=== PATIENT | female | born 1975 | race Hispanic/Latino ===

== ENCOUNTER 2022-01-25 01:28 | Emergency (ER) | payer OTHER ==
[~2022-01-25 01:28] MED LIST: BEPO10DR OU; IRON1CAP30 PO
[2022-01-25 01:47] VITALS: BP 117/81
[2022-01-25 02:21] LABS: HEMATOCRIT 40.7 % (36-48); MEAN CORPUSCULAR HEMOGLOBIN 29.6 pg (27.0-33.0); MEAN CORPUSCULAR HGB CONC 33.9 g/dL (32.0-36.0); MEAN CORPUSCULAR VOLUME 87.3 fL (79-99); PLATELET COUNT (AUTO) 193 K/uL (130-400); RED BLOOD CELL COUNT(AUTO) 4.66 MIL/uL (4.00-5.50); RED CELL DISTRIBUTION WIDTH 13.1 % (11.0-15.5); WHITE BLOOD COUNT (AUTO) 4.2 K/uL (4.8-10.8)
[2022-01-25 02:36] LABS: CARBON DIOXIDE 24 mmol/L (21-32); CHLORIDE 104 mmol/L (101-111); CREATININE 0.7 mg/dL (0.5-1.5); GLOMERULAR FILTR. RATE CALC 96 mL/min (>60); GLUCOSE,RANDOM 113 mg/dL (70-105); POTASSIUM 3.8 mmol/L (3.5-5.1); SODIUM SERUM 140 mmol/L (136-145); UREA NITROGEN, BLOOD 7 mg/dL (7-18)
[2022-01-25 02:39] LABS: APPEARANCE,URINE CLOUDY (CLEAR); BILIRUBIN,URINE SMALL (NEGATIVE); COLOR,URINE YELLOW (YELLOW); GLUCOSE, URINE (UA) NEGATIVE (NEGATIVE); KETONES,URINE >=80 mg/dL (NEGATIVE); LEUKOCYTE ESTERASE ,URINE SMALL (NEGATIVE); NITRATE,URINE NEGATIVE (NEGATIVE); OCCULT BLOOD,URINE NEGATIVE (NEGATIVE); PH,URINE 5.5 (5.0-8.0); PROTEIN,URINE 30 mg/dL (NEGATIVE)
[2022-01-25 02:40] LABS: ALANINE AMINOTRANSFERASE 14 U/L (12-78); ALBUMIN 3.6 g/dL (3.5-5.0); ASPARTATE AMINOTRANSFERASE 19 U/L (10-37); BASOPHILS % (AUTO) 0.2 % (0.0-5.0); LYMPHOCYTES % (AUTO) 26.2 % (21.0-51.0); MONOCYTES % (AUTO) 9.5 % (3.0-13.0); NEUTROPHILS % (AUTO) 63.9 % (40.0-77.0); TOTAL PROTEIN, SERUM 7.3 g/dL (6.0-8.3)
[2022-01-25] MEDS ORDERED: KETOROLAC 15MG/ML VIAL (15MG/ML) IV ONE (03:00)
[2022-01-25] MEDS ORDERED: 0.9%NACL 1000ML 1,000 ML IV ONE (03:00)
[2022-01-25 03:06] LABS: LIPASE < 50 U/L (114-286)
[2022-01-25 03:08] LABS: AMORPHOUS SEDIMENT,UR Many /LPF (None Seen); BACTERIA,URINE Few /HPF (None Seen); MUCUS,URINE Moderate LPF (None Seen); RBC,URINE None Seen /HPF (0-1); SQUAMOUS EPITHELIAL CELL,UR Many /HPF (0-2)
== END 2022-01-25 04:08 | disposition home or self-care (01) ==
LOC: EDH 01:28
DX: E86.0 Dehydration (principal); Z20.822 Contact with and (suspected) exposure to COVID-19; M32.9 Systemic lupus erythematosus, unspecified; Z79.1 Long term (current) use of non-steroidal anti-inflammatories (NSAID); Z86.718 Personal history of other venous thrombosis and embolism; Z90.49 Acquired absence of other specified parts of digestive tract
CPT/HCPCS: 99284; 96374; 87635; 84484; 80053; 83690; 85025; 87088; 87804 ×2; 81001; 81025; 36415; 93005; C9803; J7030; J1885

== ENCOUNTER 2022-09-09 20:41 | Emergency (ER) | payer OTHER ==
[~2022-09-09] VITALS: Ht 162.6 cm; Wt 72.6 kg
[2022-09-09 21:03] VITALS: BP 118/74
[2022-09-09] MEDS ORDERED: MUPI22OI2 TP (21:19)
[2022-09-09] MEDS ORDERED: CEPH500B PO (21:19)
== END 2022-09-09 21:26 | disposition home or self-care (01) ==
LOC: EDH 20:41
DX: R21 Rash and other nonspecific skin eruption (principal); Z90.710 Acquired absence of both cervix and uterus; Z79.899 Other long term (current) drug therapy

== ENCOUNTER 2022-10-23 15:25 | Emergency (ER) | payer OTHER ==
[~2022-10-23] VITALS: Ht 162.6 cm; Wt 72.6 kg
[~2022-10-23 15:25] MED LIST changes: +CEPH500B PO; +MUPI22OI2 TP
[2022-10-23] MEDS ORDERED: CYCLOBENZAPRINE HCL 10 MG TABLET PO ONE (16:00)
[2022-10-23] MEDS ORDERED: KETOROLAC 15MG/ML VIAL (15MG/ML) IV ONE (16:00)
[2022-10-23 16:29] LABS: BASOPHILS % (AUTO) 0.4 % (0.0-5.0); EOSINOPHILS % (AUTO) 0.7 % (0.0-8.0); HEMATOCRIT 40.7 % (36-48); MEAN CORPUSCULAR HEMOGLOBIN 29.6 pg (27.0-33.0); MEAN CORPUSCULAR HGB CONC 33.4 g/dL (32.0-36.0); MEAN CORPUSCULAR VOLUME 88.5 fL (79-99); MONOCYTES % (AUTO) 6.5 % (3.0-13.0); NEUTROPHILS % (AUTO) 57.2 % (40.0-77.0); PLATELET COUNT (AUTO) 258 K/uL (130-400); RED CELL DISTRIBUTION WIDTH 13.6 % (11.0-15.5); WHITE BLOOD COUNT (AUTO) 8.3 K/uL (4.8-10.8)
[2022-10-23 16:30] LABS: APPEARANCE,URINE CLEAR (CLEAR); BILIRUBIN,URINE NEGATIVE (NEGATIVE); COLOR,URINE COLORLESS (YELLOW); GLUCOSE, URINE (UA) NEGATIVE (NEGATIVE); KETONES,URINE 10 mg/dL (NEGATIVE); LEUKOCYTE ESTERASE ,URINE 25 Leu/uL (NEGATIVE); NITRATE,URINE NEGATIVE (NEGATIVE); OCCULT BLOOD,URINE NEGATIVE (NEGATIVE); PH,URINE 5.5 (5.0-8.0); PROTEIN,URINE NEGATIVE (NEGATIVE); UROBILINOGEN,URINE 0.2 mg/dL (0.2-1.0)
[2022-10-23 16:32] LABS: BACTERIA,URINE RARE /HPF (None Seen); MUCUS,URINE RARE LPF (None Seen); RBC,URINE 0-1 /HPF (0-1); SQUAMOUS EPITHELIAL CELL,UR FEW /HPF (0-2)
[2022-10-23 16:39] LABS: CREATININE 0.5 mg/dL (0.5-1.5); POTASSIUM 3.7 mmol/L (3.5-5.1)
[2022-10-23 16:49] LABS: ALBUMIN 3.9 g/dL (3.5-5.0); TOTAL PROTEIN, SERUM 7.5 g/dL (6.0-8.3)
[2022-10-23] MEDS ORDERED: KETO10TA2 PO (17:43)
[2022-10-23] MEDS ORDERED: CYCL-309 PO (17:43)
[2022-10-23 17:55] VITALS: BP 119/73
== END 2022-10-23 18:04 | disposition home or self-care (01) ==
LOC: EDH 15:25
DX: M62.830 Muscle spasm of back (principal); Z79.899 Other long term (current) drug therapy; Z98.890 Other specified postprocedural states; V48.5XXA Car driver injured in noncollision transport accident in traffic accident, initial encounter; Y93.I9 Activity, other involving external motion; Y92.410 Unspecified street and highway as the place of occurrence of the external cause; Y99.8 Other external cause status
CPT/HCPCS: 99285; 96374; 71045; 84484; 80053; 85025; 83605; 81001; 36415; 93005; J1885

== ENCOUNTER 2023-03-04 19:38 | Emergency (ER) | payer OTHER ==
[~2023-03-04] VITALS: Ht 162.6 cm; Wt 72.6 kg
[~2023-03-04 19:38] MED LIST changes: +CYCL-309 PO; +KETO10TA2 PO; +PRED20TA3 PO
[2023-03-04] MEDS ORDERED: 0.9%NACL 1000ML 1,000 ML IV ONE (20:30)
[2023-03-04] MEDS ORDERED: ONDANSETRON 4MG INJ IVP ONE (20:30)
[2023-03-04] MEDS ORDERED: KETOROLAC 30MG VIAL (30MG/ML) IVP ONE (20:30)
[2023-03-04 20:44] LABS: BASOPHILS # (AUTO) 0.03 K/uL (0.00-0.20); BASOPHILS % (AUTO) 0.4 % (0.0-5.0); EOSINOPHILS # (AUTO) 0.05 K/uL (0.00-0.70); EOSINOPHILS % (AUTO) 0.7 % (0.0-8.0); HEMATOCRIT 41.2 % (36-48); IMMATURE GRANULOCYTE ABSOLUTE 0.01 K/uL (0-1); LYMPHOCYTES # (AUTO) 3.2 K/uL (1.0-4.8); LYMPHOCYTES % (AUTO) 43.3 % (21.0-51.0); MEAN CORPUSCULAR HEMOGLOBIN 29.7 pg (27.0-33.0); MEAN CORPUSCULAR HGB CONC 32.5 g/dL (32.0-36.0); MEAN CORPUSCULAR VOLUME 91.4 fL (79-99); MONOCYTES # (AUTO) 0.6 K/uL (0.1-1.0); MONOCYTES % (AUTO) 7.4 % (3.0-13.0); NEUTROPHILS # (AUTO) 3.6 K/uL (1.8-7.7); NEUTROPHILS % (AUTO) 48.1 % (40.0-77.0); PLATELET COUNT (AUTO) 240 K/uL (130-400); RED BLOOD CELL COUNT(AUTO) 4.51 MIL/uL (4.00-5.50); RED CELL DISTRIBUTION WIDTH 13.2 % (11.0-15.5); WHITE BLOOD COUNT (AUTO) 7.4 K/uL (4.8-10.8)
[2023-03-04 20:46] LABS: APPEARANCE,URINE CLOUDY (CLEAR); BILIRUBIN,URINE NEGATIVE (NEGATIVE); COLOR,URINE LIGHT-YELLOW (YELLOW); GLUCOSE, URINE (UA) NEGATIVE (NEGATIVE); KETONES,URINE NEGATIVE (NEGATIVE); LEUKOCYTE ESTERASE ,URINE NEGATIVE Leu/uL (NEGATIVE); NITRATE,URINE NEGATIVE (NEGATIVE); OCCULT BLOOD,URINE NEGATIVE (NEGATIVE); PROTEIN,URINE NEGATIVE (NEGATIVE); UROBILINOGEN,URINE 0.2 mg/dL (0.2-1.0)
[2023-03-04 20:50] LABS: ADD UA MICROSCOPIC YES
[2023-03-04 20:55] LABS: HCG,QUALITATIVE URINE NEGATIVE (NEGATIVE)
[2023-03-04 20:57] LABS: BACTERIA,URINE FEW /HPF (None Seen); MUCUS,URINE RARE LPF (None Seen); SQUAMOUS EPITHELIAL CELL,UR FEW /HPF (0-2); YEAST,URINE BUDDING FEW /HPF (None Seen)
[2023-03-04 21:02] LABS: CREATININE 0.6 mg/dL (0.5-1.5); POTASSIUM 3.3 mmol/L (3.5-5.1)
[2023-03-04 21:06] LABS: ALBUMIN 4.1 g/dL (3.5-5.0); BILIRUBIN,TOTAL 0.6 mg/dL (0.2-1.0); TOTAL PROTEIN, SERUM 7.5 g/dL (6.0-8.3)
[2023-03-04] MEDS ORDERED: POTASSIUM BICARB/CIT AC 25 MEQ TABLET.EFF PO ONE (21:30)
[2023-03-04] MEDS ORDERED: CYCL10TA16 PO (21:40)
[2023-03-04] MEDS ORDERED: IBUP-2070 PO (21:40)
[2023-03-04 22:00] VITALS: BP 115/73; PULSE 66; RESP 16; O2SAT 98
== END 2023-03-04 22:33 | disposition home or self-care (01) ==
LOC: EDH 19:38
DX: M62.830 Muscle spasm of back (principal); L93.0 Discoid lupus erythematosus; Z79.52 Long term (current) use of systemic steroids; Z90.49 Acquired absence of other specified parts of digestive tract; Z90.710 Acquired absence of both cervix and uterus
CPT/HCPCS: 99285; 74176; 96374; 96361; 96375; 80053; 83690; 85025; 87077; 87088; 87186; 81001; 81025; 36415; J7030; J2405; J1885

== ENCOUNTER 2023-11-19 04:27 | Inpatient (IN) | payer BC, OTHER ==
[~2023-11-19] VITALS: Ht 162.6 cm; Wt 75.2 kg
[~2023-11-19 04:27] MED LIST changes: +CYCL10TA16 PO; +IBUP-2070 PO
[2023-11-19 04:46] LABS: APPEARANCE,URINE CLOUDY (CLEAR); BILIRUBIN,URINE NEGATIVE (NEGATIVE); COLOR,URINE LIGHT-YELLOW (YELLOW); GLUCOSE, URINE (UA) NEGATIVE (NEGATIVE); KETONES,URINE NEGATIVE (NEGATIVE); LEUKOCYTE ESTERASE ,URINE 500 Leu/uL (NEGATIVE); NITRATE,URINE NEGATIVE (NEGATIVE); OCCULT BLOOD,URINE MODERATE (NEGATIVE); PH,URINE 6.5 (5.0-8.0); PROTEIN,URINE 10 mg/dL (NEGATIVE); UROBILINOGEN,URINE 0.2 mg/dL (0.2-1.0)
[2023-11-19 04:48] LABS: HCG,QUALITATIVE URINE NEGATIVE (NEGATIVE)
[2023-11-19 04:50] LABS: BASOPHILS # (AUTO) 0.03 K/uL (0.00-0.20); BASOPHILS % (AUTO) 0.4 % (0.0-5.0); EOSINOPHILS # (AUTO) 0.07 K/uL (0.00-0.70); EOSINOPHILS % (AUTO) 0.9 % (0.0-8.0); HEMATOCRIT 43.8 % (36-48); IMMATURE GRANULOCYTE ABSOLUTE 0.03 K/uL (0-1); LYMPHOCYTES # (AUTO) 2.6 K/uL (1.0-4.8); LYMPHOCYTES % (AUTO) 34.2 % (21.0-51.0); MEAN CORPUSCULAR HGB CONC 33.1 g/dL (32.0-36.0); MEAN CORPUSCULAR VOLUME 90.5 fL (79-99); MONOCYTES # (AUTO) 0.5 K/uL (0.1-1.0); MONOCYTES % (AUTO) 6.9 % (3.0-13.0); NEUTROPHILS # (AUTO) 4.4 K/uL (1.8-7.7); NEUTROPHILS % (AUTO) 57.2 % (40.0-77.0); PLATELET COUNT (AUTO) 226 K/uL (130-400); RED BLOOD CELL COUNT(AUTO) 4.84 MIL/uL (4.00-5.50); RED CELL DISTRIBUTION WIDTH 12.8 % (11.0-15.5); WHITE BLOOD COUNT (AUTO) 7.6 K/uL (4.8-10.8)
[2023-11-19] MEDS: MORPHINE 4 MG SYG IVP ONE (04:51)
[2023-11-19] MEDS: ONDANSETRON 4MG INJ IVP ONE (04:51)
[2023-11-19] MEDS: LACTATED RINGERS 1000ML 1,000 ML IV ONE (04:51)
[2023-11-19 05:00] LABS: CREATININE 0.6 mg/dL (0.5-1.0); POTASSIUM 3.5 mmol/L (3.5-5.1)
[2023-11-19 05:03] LABS: ADD UA MICROSCOPIC YES
[2023-11-19 05:05] LABS: ALBUMIN 3.9 g/dL (3.5-5.0); BILIRUBIN,TOTAL 0.6 mg/dL (0.2-1.0); TOTAL PROTEIN, SERUM 7.9 g/dL (6.0-8.3)
[2023-11-19 05:07] LABS: BACTERIA,URINE FEW /HPF (None Seen); MUCUS,URINE RARE LPF (None Seen); SQUAMOUS EPITHELIAL CELL,UR MOD /HPF (0-2); WBC,URINE 51-100 /HPF (0-1)
[2023-11-19] MEDS: LIDOCAINE HCL 2% VISCOUS 15 ML UDCUP PO ONE (05:20)
[2023-11-19] MEDS: MAG/ALUM/SIMETH 30 ML UDCUP PO ONE (05:20)
[2023-11-19] MEDS: CEFTRIAXONE 1G VIAL IVPB SCH (05:20)
[2023-11-19] MEDS ORDERED: IOHEXOL-350 75 ML VIAL IV ONE (05:22)
[2023-11-19] MEDS: FAMOTIDINE 20MG VIAL IV ONE (06:01)
[2023-11-19] MEDS: PROMETHAZINE HCL 25 MG/ML 1ML AMPULE IM ONE (06:01)
[2023-11-19] MEDS ORDERED: APIX5TAB PO (07:13)
[2023-11-19] MEDS ORDERED: MAG/ALUM/SIMETH 30 ML UDCUP PO PRN (08:30)
[2023-11-19] MEDS ORDERED: HYDROCODONE/ACETAMINOPHEN 5/325 MG TAB PO PRN (08:30)
[2023-11-19] MEDS ORDERED: ACETAMINOPHEN 325 MG TAB PO PRN (08:30)
[2023-11-19] MEDS ORDERED: GUAIFENESIN-DM 200/20 MG 10 ML PO PRN (08:30)
[2023-11-19] MEDS ORDERED: ONDANSETRON 4MG INJ IV PRN (08:30)
[2023-11-19] MEDS ORDERED: MORPHINE 4 MG SYG IV PRN (08:30)
[2023-11-19 08:38] LABS: INR <= 0.93 (0.85-1.15); PROTHROMBIN TIME 10.4 SEC (9.6-11.6)
[2023-11-19 08:39] LABS: PARTIAL THROMBOPLASTIN TIME 32.1 SEC (26.3-35.5)
[2023-11-19] MEDS: LACTATED RINGERS 1000ML 1,000 ML IV SCH (08:52)
[2023-11-19] MEDS: APIXABAN 5 MG TABLET PO SCH (08:57)
[2023-11-19] MEDS: FAMOTIDINE 20MG TAB PO SCH (09:47)
[2023-11-19 10:25] VITALS: BP 126/76; PULSE 74; RESP 16
[2023-11-19 12:00] VITALS: BP 105/59; PULSE 73; RESP 16
[2023-11-19] MEDS: CEFTRIAXONE 2GM VIAL IVPB SCH (12:26)
[2023-11-19 16:00] VITALS: BP 101/56; PULSE 69; RESP 16
[2023-11-19] MEDS: LACTULOSE 20 GM/30 ML UDCUP PO PRN (17:38)
[2023-11-19] MEDS: ACETAMINOPHEN 325 MG TAB PO PRN (17:48)
[2023-11-19 20:09] VITALS: BP 122/74; PULSE 69; RESP 18
[2023-11-19 23:33] VITALS: BP 120/59; PULSE 66; RESP 18
[2023-11-20 04:22] LABS: BASOPHILS # (AUTO) 0.02 K/uL (0.00-0.20); BASOPHILS % (AUTO) 0.4 % (0.0-5.0); EOSINOPHILS # (AUTO) 0.04 K/uL (0.00-0.70); EOSINOPHILS % (AUTO) 0.7 % (0.0-8.0); HEMATOCRIT 37.4 % (36-48); IMMATURE GRANULOCYTE ABSOLUTE 0.01 K/uL (0-1); LYMPHOCYTES # (AUTO) 2.4 K/uL (1.0-4.8); LYMPHOCYTES % (AUTO) 44.7 % (21.0-51.0); MEAN CORPUSCULAR HEMOGLOBIN 30.2 pg (27.0-33.0); MEAN CORPUSCULAR HGB CONC 33.4 g/dL (32.0-36.0); MEAN CORPUSCULAR VOLUME 90.3 fL (79-99); MONOCYTES # (AUTO) 0.5 K/uL (0.1-1.0); MONOCYTES % (AUTO) 8.5 % (3.0-13.0); NEUTROPHILS # (AUTO) 2.5 K/uL (1.8-7.7); NEUTROPHILS % (AUTO) 45.5 % (40.0-77.0); PLATELET COUNT (AUTO) 210 K/uL (130-400); RED BLOOD CELL COUNT(AUTO) 4.14 MIL/uL (4.00-5.50); RED CELL DISTRIBUTION WIDTH 12.9 % (11.0-15.5); WHITE BLOOD COUNT (AUTO) 5.4 K/uL (4.8-10.8)
[2023-11-20 04:28] VITALS: BP 103/60; PULSE 56; RESP 18
[2023-11-20 04:54] LABS: CREATININE 0.6 mg/dL (0.5-1.0); POTASSIUM 3.8 mmol/L (3.5-5.1)
[2023-11-20 08:00] VITALS: BP 121/68; PULSE 69; RESP 16
[2023-11-20 12:00] VITALS: BP 108/73; PULSE 64; RESP 16
[2023-11-20 16:00] VITALS: BP 106/66; PULSE 53; RESP 16
[2023-11-20 20:44] VITALS: BP 128/66; PULSE 61; RESP 18
[2023-11-20 23:56] VITALS: BP 110/73; PULSE 66; RESP 18
[2023-11-21 04:30] VITALS: BP 105/61; PULSE 64; RESP 18
[2023-11-21 07:53] VITALS: BP 103/70; PULSE 64; RESP 17
[2023-11-21 08:00] VITALS: O2SAT 98
[2023-11-21 12:00] VITALS: BP 105/68; PULSE 65; RESP 18
[2023-11-21 16:00] VITALS: BP 113/66; PULSE 61; RESP 16
[2023-11-21 20:00] VITALS: BP 119/77; PULSE 61; RESP 17
[2023-11-22] VITALS: BP 114/76; PULSE 71; RESP 17
[2023-11-22 04:00] VITALS: BP 110/67; PULSE 60; RESP 17
[2023-11-22 04:09] LABS: BASOPHILS # (AUTO) 0.03 K/uL (0.00-0.20); BASOPHILS % (AUTO) 0.4 % (0.0-5.0); EOSINOPHILS # (AUTO) 0.07 K/uL (0.00-0.70); HEMATOCRIT 35.1 % (36-48); IMMATURE GRANULOCYTE ABSOLUTE 0.03 K/uL (0-1); LYMPHOCYTES # (AUTO) 2.9 K/uL (1.0-4.8); LYMPHOCYTES % (AUTO) 40.1 % (21.0-51.0); MEAN CORPUSCULAR HEMOGLOBIN 29.7 pg (27.0-33.0); MEAN CORPUSCULAR HGB CONC 33.6 g/dL (32.0-36.0); MEAN CORPUSCULAR VOLUME 88.4 fL (79-99); MONOCYTES # (AUTO) 0.4 K/uL (0.1-1.0); MONOCYTES % (AUTO) 5.9 % (3.0-13.0); NEUTROPHILS # (AUTO) 3.8 K/uL (1.8-7.7); NEUTROPHILS % (AUTO) 52.2 % (40.0-77.0); PLATELET COUNT (AUTO) 218 K/uL (130-400); RED BLOOD CELL COUNT(AUTO) 3.97 MIL/uL (4.00-5.50); RED CELL DISTRIBUTION WIDTH 12.6 % (11.0-15.5); WHITE BLOOD COUNT (AUTO) 7.3 K/uL (4.8-10.8)
[2023-11-22 04:24] LABS: ALBUMIN 3.1 g/dL (3.5-5.0); BILIRUBIN,TOTAL 0.4 mg/dL (0.2-1.0); CREATININE 0.6 mg/dL (0.5-1.0); POTASSIUM 3.6 mmol/L (3.5-5.1); TOTAL PROTEIN, SERUM 6.4 g/dL (6.0-8.3)
[2023-11-22 07:30] VITALS: BP 122/62; PULSE 57; RESP 20
[2023-11-22] MEDS ORDERED: FAMO20TA8 PO (08:37)
[2023-11-22] MEDS ORDERED: POTASSIUM CHLORIDE 10% ELIXIR 20 MEQ/15 ML UDCUP PO PRN (09:00)
[2023-11-22] MEDS ORDERED: MAGNESIUM 2GM PREMIX 50ML 50 ML IV PRN (09:00)
[2023-11-22] MEDS ORDERED: KCL 20 MEQ ERTAB PO PRN (09:00)
[2023-11-22] MEDS ORDERED: POTASSIUM CHLORIDE 20MEQ/100ML 100 ML IV PRN (09:00)
[2023-11-22 11:44] VITALS: BP 105/67; PULSE 64; RESP 20
== END 2023-11-22 15:00 | disposition home or self-care (01) | DRG 872 ==
LOC: EDH 04:27 → EDHIP 08:01 → 4DH 09:41
PROVIDERS: ADMIT Hospitalist; ATTEND Hospitalist
DX: A41.9 Sepsis, unspecified organism (principal); N10 Acute pyelonephritis; E86.0 Dehydration; I25.10 Atherosclerotic heart disease of native coronary artery without angina pectoris; N20.0 Calculus of kidney; B96.29 Other Escherichia coli [E. coli] as the cause of diseases classified elsewhere; Z86.718 Personal history of other venous thrombosis and embolism; Z87.442 Personal history of urinary calculi; Z90.710 Acquired absence of both cervix and uterus; Z95.5 Presence of coronary angioplasty implant and graft; M32.9 Systemic lupus erythematosus, unspecified; Z90.49 Acquired absence of other specified parts of digestive tract
CPT/HCPCS: 36415; 74177; 80048; 80053; 81001; 81025; 83690; 83735; 85025; 85610; 85730; 87077; 87088; 87186; 96365; 96375; G0378; J0696; J2270; J2405; J2550; J3490; Q9967

== ENCOUNTER 2024-05-13 20:22 | Emergency (ER) | payer BC ==
[~2024-05-13] VITALS: Ht 162.6 cm; Wt 78.0 kg
[~2024-05-13 20:22] MED LIST changes: +APIX5TAB PO; -BEPO10DR OU; -CEPH500B PO; -CYCL-309 PO; -CYCL10TA16 PO; +FAMO20TA8 PO; -IBUP-2070 PO; -IRON1CAP30 PO; -KETO10TA2 PO; -MUPI22OI2 TP; -PRED20TA3 PO
[2024-05-13 21:00] LABS: BASOPHILS # (AUTO) 0.03 K/uL (0.00-0.20); BASOPHILS % (AUTO) 0.4 % (0.0-5.0); EOSINOPHILS # (AUTO) 0.06 K/uL (0.00-0.70); EOSINOPHILS % (AUTO) 0.8 % (0.0-8.0); HEMATOCRIT 40.8 % (36-48); IMMATURE GRANULOCYTE ABSOLUTE 0.02 K/uL (0-1); LYMPHOCYTES # (AUTO) 3.3 K/uL (1.0-4.8); LYMPHOCYTES % (AUTO) 44.7 % (21.0-51.0); MEAN CORPUSCULAR HEMOGLOBIN 29.2 pg (27.0-33.0); MEAN CORPUSCULAR HGB CONC 32.6 g/dL (32.0-36.0); MEAN CORPUSCULAR VOLUME 89.7 fL (79-99); MONOCYTES # (AUTO) 0.6 K/uL (0.1-1.0); MONOCYTES % (AUTO) 7.4 % (3.0-13.0); NEUTROPHILS # (AUTO) 3.5 K/uL (1.8-7.7); NEUTROPHILS % (AUTO) 46.4 % (40.0-77.0); PLATELET COUNT (AUTO) 224 K/uL (130-400); RED BLOOD CELL COUNT(AUTO) 4.55 MIL/uL (4.00-5.50); RED CELL DISTRIBUTION WIDTH 13.2 % (11.0-15.5); WHITE BLOOD COUNT (AUTO) 7.5 K/uL (4.8-10.8)
[2024-05-13 21:04] LABS: APPEARANCE,URINE CLOUDY (CLEAR); BILIRUBIN,URINE NEGATIVE (NEGATIVE); COLOR,URINE YELLOW (YELLOW); GLUCOSE, URINE (UA) NEGATIVE (NEGATIVE); KETONES,URINE 5 mg/dL (NEGATIVE); LEUKOCYTE ESTERASE ,URINE 25 Leu/uL (NEGATIVE); NITRATE,URINE NEGATIVE (NEGATIVE); OCCULT BLOOD,URINE NEGATIVE (NEGATIVE); PH,URINE 5.5 (5.0-8.0); PROTEIN,URINE 20 mg/dL (NEGATIVE); UROBILINOGEN,URINE 0.2 mg/dL (0.2-1.0)
[2024-05-13 21:07] LABS: CREATININE 0.8 mg/dL (0.5-1.0); POTASSIUM 3.6 mmol/L (3.5-5.1)
[2024-05-13 21:07] LABS: ADD UA MICROSCOPIC YES
[2024-05-13 21:08] LABS: MUCUS,URINE RARE LPF (None Seen); SQUAMOUS EPITHELIAL CELL,UR MANY /HPF (0-2)
[2024-05-13] MEDS: ketOROlac 30MG VIAL (30MG/ML) IVP ONE (21:30)
[2024-05-13] MEDS: ondanSETRON 4MG INJ IVP ONE (21:30)
--- NOTE | 2024-05-13 21:53 | HMCIMG ---
CT ABDOMEN/PELVIS W/O CONTRAST INDICATION: Flank pain TECHNIQUE: CT ABDOMEN/PELVIS W/O CONTRAST. Oral contrast was - given. Coronal and sagittal reformats were performed. CT was performed with one or more of the following dose reduction techniques: Automated exposure control, adjustment of the mA and/or kV according to the patient's size, or use of the iterative reconstruction technique. Comparison: None. FINDINGS: The noncontrast nature this study limits evaluation of abdominal viscera. No pulmonary consolidation or pleural effusion is seen. There is hepatic steatosis. Cholecystectomy changes are noted. The spleen, pancreas, and adrenal glands are within normal limits. No hydronephrosis. The urinary bladder is partially collapsed. Hysterectomy changes are noted. A stent is seen in the left common iliac vein. There is no bowel obstruction. Normal appendix. Small fat-containing umbilical hernia is seen. Degenerative changes of the spine. Visualized aorta is normal in caliber. IMPRESSION: No hydronephrosis or renal calculus is seen.
[2024-05-13] MEDS ORDERED: NITR100C4 PO (22:52)
[2024-05-13] MEDS ORDERED: ONDA-243 PO (22:52)
--- NOTE | 2024-05-13 22:53 | ERN ---
ED Note History of Present Illness Stated Complaint: UTI, KIDNY PAIN Chief Complaint: Abdominal Pain Time Seen by MD: 20:44 Time Seen by Midlevel: 20:44 Dictation: The patient is a 48-year-old female with a history of lupus, hysterectomy, cholecystectomy who presents to the emergency department with left lower back pain that radiates to the suprapubic area onset two days ago. Patient also reports frequent urination. Denies any fevers or hematuria, chills reports occasional nausea. Denies diarrhea or constipation. Allergies: Coded Allergies: No Known Drug Allergies (Unverified Allergy, Unknown, 11/16/17) Home Meds Active Scripts Ondansetron (Ondansetron Odt) 4 Mg Tab.rapdis, 1 TAB PO Q6HPRN PRN for mouna sea/vomiting for 4 Days, #16 TAB 0 Refills Prov:LOI ARBOLEDA [facility] 05/13/24 Nitrofurantoin Monohyd/M-Cryst (Macrobid 100 mg Capsule) 100 Mg Capsule, 1 CAP PO BID for 5 Days, #10 CAP 0 Refills Prov:LOI ARBOLEDA [facility] 05/13/24 Famotidine (Famotidine) 20 Mg Tablet, 20 MG PO DAILY for 30 Days, #30 TAB Prov:ROSLYN FRANCOIS [employer]IST 11/22/23 Reported Medications Apixaban (Eliquis) 5 Mg Tablet, 5 MG PO BID, TAB 11/19/23 Past Medical History Past Medical History: Other Additional Past Medical Hx: LUPUS; HX OF HERPES Surgical History: Hysterectomy Surgical History Other: LASIK, CARDIAC STENT Social History: Negative, Lives with family History: Not Applicable RN Note Reviewed/Agreed w/PFSH: Yes Review of System Dictation Constitutional: Negative for fever,chills, and weight loss Eyes: Negative for injury, pain,redness, and discharge ENT: Negative for injury,pain or swelling Cardiovascular: Negative for chest pain, palpitations, and edema Respiratory: Negative for shortness of breath, cough, and wheezing, Abdomen/GI: Negative for vomiting, diarrhea, and constipation. Positive for abdominal pain, nausea Back: Negative for injury and pain : Negative for injury, bleeding and discharge positive for polyuria MS/Extremity: Negative for injury and deformity positive for back pain Skin: Negative for rash, and discoloration Neuro: Negative for headache, weakness, numbness, tingling, and seizure Psych: Negative for suicide ideation, homicidal ideation, and hallucinations Initial Vital Sign VS Vital Signs Date Time Temp Pulse Resp B/P (MAP) Pulse Ox O2 Delivery O2 Flow Rate FiO2 05/13/24 20:31 98.4 68 20 103/58 99 Room Air Physical Exam Dictation Vital Signs reviewed General Appearance: Alert, oriented x 3, no acute distress, well developed, nourished. Head and Face: non-traumatic. Eyes: PERRL, pink conjunctivas, eyelid no trauma, anterior chamber with arcus senilis. Ears: Pinnas intact and no signs of trauma or erythema ear canals clear and no discharge TM no erythema Nose: No discharge, no bleeding. Oropharynx: Mouth normal, tongue pink. pharynx clear,no erythema, tonsils no exudates, no abscesses noted, mucous membrane moist Neck: Supple, non-tender, no thyromegaly, no masses, no JVD, no bruits Breast:Deferred Chest:No tenderness, no crepitus, no paradoxical movement, no retractions Lungs:Clear, well-ventilated, symmetric, no rales, no wheezing, no rhonchi, no stridor, good breath sounds bilaterally Heart: Regular rate, regular rhythm, no murmur, no gallops Vascular: no peripheral edema, Abdomen: Soft, positive bowel sounds, nondistended, no guarding, nontender, no rebound, no masses no hepatomegaly, no splenomegaly, no Pettit's sign, no hernias. Rectal: Deferred Genital: Deferred Neurological: Normal speech, motor function intact, sensory function intact Musculoskeletal: Neck nontender, full range of motion, back nontender, full range of motion, Extremities: nontender, full range of motion Skin: Color pink, dry, no turgor, no rash, no lacerations, no abrasions, no contusions. Lymphatic: Deferred Results (Laboratory/Radiology) Laboratory/Radiology Laboratory Tests Test 05/13/24 20:46 05/13/24 20:48 White Blood Count 7.5 K/uL (4.8-10.8) Red Blood Count 4.55 MIL/uL (4.00-5.50) Hemoglobin 13.3 g/dL (12.0-16.0) Hematocrit 40.8 % (36-48) Mean Corpuscular Volume 89.7 fL (79-99) Mean Corpuscular Hemoglobin 29.2 pg (27.0-33.0) Mean Corpuscular Hemoglobin Concent 32.6 g/dL (32.0-36.0) Red Cell Distribution Width 13.2 % (11.0-15.5) Platelet Count 224 K/uL (130-400) Mean Platelet Volume 9.8 fL (7.5-10.5) Immature Granulocyte % (Auto) 0.3 % (0-1) Neutrophils (%) (Auto) 46.4 % (40.0-77.0) Lymphocytes (%) (Auto) 44.7 % (21.0-51.0) Monocytes (%) (Auto) 7.4 % (3.0-13.0) Eosinophils (%) (Auto) 0.8 % (0.0-8.0) Basophils (%) (Auto) 0.4 % (0.0-5.0) Neutrophils # (Auto) 3.5 K/uL (1.8-7.7) Lymphocytes # (Auto) 3.3 K/uL (1.0-4.8) Monocytes # (Auto) 0.6 K/uL (0.1-1.0) Eosinophils # (Auto) 0.06 K/uL (0.00-0.70) Basophils # (Auto) 0.03 K/uL (0.00-0.20) Absolute Immature Granulocyte (auto 0.02 K/uL (0-1) Nucleated Red Blood Cells 0.0 % (0.0-0.19) Sodium Level 140 mmol/L (136-145) Potassium Level 3.6 mmol/L (3.5-5.1) Chloride Level 101 mmol/L (101-111) Carbon Dioxide Level 33 mmol/L (21-32) H Blood Urea Nitrogen 17 mg/dL (7-18) Creatinine 0.8 mg/dL (0.5-1.0) Glomerular Filtration Rate Calc 91 mL/min (>90) Random Glucose 85 mg/dL (70-105) Total Calcium 9.4 mg/dL (8.5-10.1) Lipase 26 U/L (16-77) Urine Color YELLOW (YELLOW) Urine Appearance CLOUDY (CLEAR) H Urine pH 5.5 (5.0-8.0) Urine Specific [place] 1.032 (1.001-1.031) Urine Protein 20 mg/dL (NEGATIVE) H Urine Glucose (UA) NEGATIVE mg/dL (NEGATIVE) Urine Ketones 5 mg/dL (NEGATIVE) H Urine Occult Blood NEGATIVE (NEGATIVE) Urine Nitrate NEGATIVE (NEGATIVE) Urine Bilirubin NEGATIVE mg/dL (NEGATIVE) Urine Urobilinogen 0.2 mg/dL (0.2-1.0) Urine Leukocyte Esterase 25 Jazmin/uL (NEGATIVE) H Urine RBC 2-5 /HPF (0-1) H Urine WBC 2-5 /HPF (0-1) H Urine Squamous Epithelial Cells MANY /HPF (0-2) Urine Bacteria None /HPF (None Seen) REASON: R/O KIDNEY STONES ORDERING PHYSICIAN: LOI ARBOLEDA PROCEDURE: ABD PEL WO - CT ABDOMEN/PELVIS W/O CONTRAST CT ABDOMEN/PELVIS W/O CONTRAST INDICATION: Flank pain TECHNIQUE: CT ABDOMEN/PELVIS W/O CONTRAST. Oral contrast was - given. Coronal and sagittal reformats were performed. CT was performed with one or more of the following dose reduction techniques: Automated exposure control, adjustment of the mA and/or kV according to the patient's size, or use of the iterative reconstruction technique. Comparison: None. FINDINGS: The noncontrast nature this study limits evaluation of abdominal viscera. No pulmonary consolidation or pleural effusion is seen. There is hepatic steatosis. Cholecystectomy changes are noted. The spleen, pancreas, and adrenal glands are within normal limits. No hydronephrosis. The urinary bladder is partially collapsed. Hysterectomy changes are noted. A stent is seen in the left common iliac vein. There is no bowel obstruction. Normal appendix. Small fat-containing umbilical hernia is seen. Degenerative changes of the spine. Visualized aorta is normal in caliber. IMPRESSION: No hydronephrosis or renal calculus is seen. Labs Reviewed?: Yes ED Course ED Course Orders Procedure Category Date Status Time Vital Signs Per CPOE 05/13/24 Transmitted Routine 20:36 Saline Lock Iv CPOE 05/13/24 Transmitted 20:36 Cbc With Differential LAB 05/13/24 Complete 20:36 Lipase LAB 05/13/24 Complete 20:36 Urinalysis Profile LAB 05/13/24 Complete 20:36 Basic Metabolic Panel LAB 05/13/24 Complete 20:36 Ct Abdomen/Pelvis W/O CT 11/18/24 Resulted Contrast 21:14 0.9%Nacl 1000ml (Ns PHA 05/13/24 Complete 1000ml) 21:30 Ketorolac PHA 05/13/24 Complete Tromethamine 30mg/Ml 21:30 Ondansetron 4mg Inj PHA 05/13/24 Complete (Zofran 4mg Inj) 21:30 Ceftriaxone 1g Vial PHA 05/13/24 Complete (Rocephine 1g Inj) 21:30 Current Medications Medications (Trade) Dose Ordered Sig/Alejo Route PRN Reason Start Time Stop Time Status Last Admin Dose Admin Ceftriaxone Sodium (ROCEphine 1G INJ) 1 gm ONCE ONCE IVPB 05/13/24 21:30 05/13/24 21:31 DC Ketorolac Tromethamine (toRADol) 30 mg ONCE ONCE IVP 05/13/24 21:30 05/13/24 21:31 DC Ondansetron HCl (zoFRAN 4MG INJ) 4 mg ONCE ONCE IVP 05/13/24 21:30 05/13/24 21:31 DC Sodium Chloride 1,000 ml @ 0 mls/hr ONCE ONCE IV 05/13/24 21:30 05/13/24 21:31 DC Vital Signs Date Time Temp Pulse Resp B/P (MAP) Pulse Ox O2 Delivery O2 Flow Rate FiO2 05/13/24 20:31 98.4 68 20 103/58 99 Room Air Medical Decision Making MDM The patient is a 48-year-old female with a history of lupus, hysterectomy, cholecystectomy who presents to the emergency department with left lower back pain that radiates to the suprapubic area onset two days ago. Patient also reports frequent urination. Denies any fevers or hematuria, chills reports occasional nausea. Denies diarrhea or constipation. CBC showed no leukocytosis, no anemia, chemistry showed no electrolyte imbalance, normal renal function, negative lipase, urinalysis positive for UTI. Patient will be treated as outpatient. CT abdomen showed no kidney stones, small umbilical hernia. Patient continues in no distress, nontender abdomen, no CVA tenderness labs and imaging discussed with the patient who agrees to be discharged and follow up with PCP. Differential diagnosis: Kidney stone, UTI, pyelonephritis, electrolyte imbal ance, back strain Need for hospitalization: Patient does not meet criteria for hospitalization. There are no social concerns with this patient. DX & DISP Disposition: Discharge Departure Impression: Primary Impression: UTI (urinary tract infection) Additional Impressions: Abdominal pain, Umbilical hernia Condition: Stable Scripts Ondansetron (Ondansetron Odt) 4 Mg Tab.rapdis 1 TAB PO Q6HPRN PRN for nausea/vomiting for 4 Days, #16 TAB 0 Refills Prov: LOI ARBOLEDA [facility] [employer] 05/13/24 Nitrofurantoin Monohyd/M-Cryst (Macrobid 100 mg Capsule) 100 Mg Capsule 1 CAP PO BID for 5 Days, #10 CAP 0 Refills Prov: LOI ARBOLEDA [facility] 05/13/24 Additional Instructions: Please take medications as prescribed. Please follow up with primary doctor in 1-2 days. If symptoms worsen please return to ER. FOLLOW-UP WITH PRIMARY CARE PROVIDER IN 1 TO 2 DAYS. TAKE MEDICATIONS DIRECTED HERE IN THE EMERGENCY ROOM. OKAY TO CONTINUE HOME MEDICATIONS UNLESS OTHERWISE DISCUSSED DURING YOUR VISIT IN THE EMERGENCY ROOM TODAY. RETURN TO YOUR NEAREST EMERGENCY ROOM IF SYMPTOMS WORSEN OR IF THERE IS NO IMPROVEMENT. CALL 911 IF YOU NEED IMMEDIATE ASSISTANCE. TAKE TYLENOL OR MOTRIN [id number] NEEDED AND IF NO CONTRAINDICATIONS ARE PRESENT. INCREASE ORAL HYDRATION. A WOUND CULTURE OR URINE CULTURE WAS ORDERED HERE IN THE EMERGENCY ROOM DEPARTMENT PLEASE FOLLOW-UP WITH PRIMARY CARE PROVIDER AND ADVISE THEM TO GET REPEAT PORTS FROM OUR FACILITY. IF YOU HAD ANY ANNY WRAP/SPLINTS THAT WERE APPLIED HERE, PLEASE DO NOT REMOVE THEM UNTIL YOU SEE YOUR PRIMARY CARE OR SPECIALTY. Referrals: TIFFANIE LIVINGSTON (PCP) Time of Disposition: 22:50 I have reviewed the case, and I agree with, Diagnosis and Plan LOI ARBOLEDA [facility] May 13, 2024 22:53
--- NOTE | 2024-05-14 00:02 | NUR ---
MISSED 2 IV INSERTIONS.
[2024-05-14] MEDS: cefTRIAXone 1G VIAL IVPB ONE (00:15)
[2024-05-14] MEDS: 0.9%NACL 1000ML 1,000 ML IV ONE (00:15)
[2024-05-14 00:55] VITALS: BP 116/78; PULSE 69; RESP 18; TEMP 98.2; O2SAT 98
== END 2024-05-14 00:58 | disposition home or self-care (01) ==
LOC: EDH 20:22
DX: N39.0 Urinary tract infection, site not specified (principal); R10.9 Unspecified abdominal pain; K42.9 Umbilical hernia without obstruction or gangrene; Z79.01 Long term (current) use of anticoagulants; Z90.710 Acquired absence of both cervix and uterus; Z95.5 Presence of coronary angioplasty implant and graft
CPT/HCPCS: 99284; 74176; 96375; 80048; 83690; 85025; 81001; 36415; 96365; J1885; J7030; J0696; J2405

== ENCOUNTER 2024-05-30 12:51 | Emergency (ER) | payer BC ==
[~2024-05-30] VITALS: Ht 162.6 cm; Wt 78.0 kg
[~2024-05-30 12:51] MED LIST changes: +NITR100C4 PO; +ONDA-243 PO
[2024-05-30 12:53] VITALS: TEMP 98.3
--- NOTE | 2024-05-30 12:57 | ERN ---
ED Note History of Present Illness Stated Complaint: NECK INFLAMMATION Chief Complaint: Neck Injury Time Seen by MD: 12:53 Dictation: PATIENT HERE WITH A A SWOLLEN LYMPH NODE/NODULE TO THE LEFT LATERAL INFERIOR NECK AREA ONSET COUPLE OF DAYS AGO. NO FEVER NO CHILLS NO THROAT PAIN NO EAR PAIN. SAW HER PRIMARY CARE DOCTOR YESTERDAY HOWEVER DID NOT SHOW THE LESION TO HIM. NO PAIN AT THIS TIME Allergies: Coded Allergies: No Known Drug Allergies (Unverified Allergy, Unknown, 11/16/17) Home Meds Active Scripts Ondansetron (Ondansetron Odt) 4 Mg Tab.rapdis, 1 TAB PO Q6HPRN PRN for nausea/vomiting for 4 Days, #16 TAB 0 Refills Prov:ARBOLEDALOI [facility] 05/13/24 Nitrofurantoin Monohyd/M-Cryst (Macrobid 100 mg Capsule) 100 Mg Capsule, 1 CAP PO BID for 5 Days, #10 CAP 0 Refills Prov:LOI ARBOLEDA [facility] 05/13/24 Famotidine (Famotidine) 20 Mg Tablet, 20 MG PO DAILY for 30 Days, #30 TAB Prov:ROSLYN FRANCOIS PULLMAN CLERK 11/22/23 Reported Medications Apixaban (Eliquis) 5 Mg Tablet, 5 MG PO BID, TAB 11/19/23 Past Medical History Past Medical History: Other Additional Past Medical Hx: LUPUS; HX OF HERPES Surgical History: Hysterectomy Surgical History Other: LASIK, CARDIAC STENT Social History: Negative, Lives with family History: Not Applicable RN Note Reviewed/Agreed w/PFSH: Yes Review of System Dictation CONSTITUTIONAL: NEGATIVE EXCEPT FOR HPI HEAD/FACE: NEGATIVE EXCEPT FOR HPI EENT: NEGATIVE EXCEPT FOR HPI RESPIRATORY: NEGATIVE EXCEPT FOR HPI GASTROINTESTINAL/ABDOMINAL: NEGATIVE EXCEPT FOR HPI GENITOURINARY: NEGATIVE EXCEPT FOR HPI MUSCULOSKELETAL: NEGATIVE EXCEPT FOR HPI INTEGUMENTARY: NEGATIVE EXCEPT FOR HPI NEUROLOGICAL/PSYCH: NEGATIVE EXCEPT FOR HPI HEMATOLOGIC/LYMPHATIC: NEGATIVE EXCEPT FOR HPI LEFT LATERAL NECK NODULE/LYMPH NODE ALL SYSTEMS NEGATIVE, EXCEPT NOTED ABOVE. 13 POINT REVIEW OF SYSTEMS ASSESSED AND ALL NEGATIVE EXCEPT FOR ABOVE. Initial Vital Sign VS Vital Signs Date Time Temp Pulse Resp B/P (MAP) Pulse Ox O2 Delivery O2 Flow Rate FiO2 05/30/24 12:53 98.2 70 16 109/79 99 Room Air 0 05/30/24 12:53 21 Physical Exam Dictation VITAL SIGNS REVIEWED 0/10 PAIN GENERAL APPEARANCE: ALERT, ORIENTED X 3, NO ACUTE DISTRESS, WELL DEVELOPED, NOURISHED. HEAD AND FACE: NON-TRAUMATIC. EYES: PERRL, PINK CONJUNCTIVAS, EYELID NO TRAUMA, ANTERIOR CHAMBER WITH ARCUS SENILIS. EARS: PINNAS INTACT AND NO SIGNS OF TRAUMA OR ERYTHEMA EAR CANALS CLEAR AND NO DISCHARGE TM NO ERYTHEMA NOSE: NO DISCHARGE, NO BLEEDING. OROPHARYNX: MOUTH NORMAL, TONGUE PINK, PHARYNX CLEAR,NO ERYTHEMA, TONSILS NO EXUDATES, NO ABSCESSES NOTED, MUCOUS MEMBRANE MOIST NECK: SUPPLE, NON-TENDER, NO THYROMEGALY, NO MASSES, NO JVD, NO BRUITS BREAST:DEFERRED CHEST:NO TENDERNESS, NO CREPITUS, NO PARADOXICAL MOVEMENT, NO RETRACTIONS LUNGS:CLEAR, WELL-VENTILATED, SYMMETRIC, NO RALES, NO WHEEZING, NO RHONCHI, NO STRIDOR, GOOD BREATH SOUNDS BILATERALLY HEART: REGULAR RATE, REGULAR RHYTHM, NO MURMUR, NO GALLOPS VASCULAR: NO PERIPHERAL EDEMA, ABDOMEN: SOFT, POSITIVE BOWEL SOUNDS, NONDISTENDED, NO GUARDING, NONTENDER, NO REBOUND, NO MASSES NO HEPATOMEGALY, NO SPLENOMEGALY, NO HEALY'S SIGN, NO HERNIAS. RECTAL: DEFERRED GENITAL: DEFERRED NEUROLOGICAL: NORMAL SPEECH, MOTOR FUNCTION INTACT, SENSORY FUNCTION INTACT MUSCULOSKELETAL: NECK NONTENDER, FULL RANGE OF MOTION, BACK NONTENDER, FULL RANGE OF MOTION, EXTREMITIES: NONTENDER, FULL RANGE OF MOTION SKIN: COLOR PINK, DRY, NO TURGOR, NO RASH, NO LACERATIONS, NO ABRASIONS, NO CON TUSIONS. LYMPHATIC: QUESTIONABLE LYMPHADENOPATHY TO A SINGULAR NODE ON LEFT LATERAL INFERIOR NECK, ANTERIOR CERVICAL Results (Laboratory/Radiology) Laboratory/Radiology ULTRASOUND SOFT TISSUE NECK DEMONSTRATES TWO LYMPH NODES. NO MASSES Labs Reviewed?: Yes ED Course ED Course Orders Procedure Category Date Status Time Us Soft Tissue Neck US 05/30/24 Taken 12:54 Vital Signs Date Time Temp Pulse Resp B/P (MAP) Pulse Ox O2 Delivery O2 Flow Rate FiO2 05/30/24 12:53 98.2 72 16 109/79 99 Room Air* 0 21 05/30/24 12:53 98.2 70 16 109/79 99 Room Air 0 Medical Decision Making MDM MEDICAL DISCHARGE MAKING BASED ON ULTRASOUND OF THE NECK AND TREATMENT FOR LYMPHADENOPATHY. PATIENT WILL BE PLACED ON [id number] B.I.D. FOR SEVEN DAYS PROPHYLACTICALLY INSTRUCTED TO SEE HER PRIMARY CARE DOCTOR FOR MANAGEMENT DX & DISP Disposition: Discharge Departure Impression: Primary Impression: Lymphadenopathy, anterior cervical Condition: Stable Scripts Amoxicillin/Potassium Clav (Amox Tr-K Clv 875-125 mg Tab) 875 Mg-125 Mg Tablet 1 EACH PO BID for 7 Days, #14 TAB 0 Refills Prov: UMBERTO FRANCIS NP 05/30/24 Additional Instructions: FOLLOW-UP WITH PRIMARY CARE PROVIDER IN 1 TO 2 DAYS. TAKE MEDICATIONS DIRECTED HERE IN THE EMERGENCY ROOM. OKAY TO CONTINUE HOME MEDICATIONS UNLESS OTHERWISE DISCUSSED DURING YOUR VISIT IN THE EMERGENCY ROOM TODAY. RETURN TO YOUR NEAREST EMERGENCY ROOM IF SYMPTOMS WORSEN OR IF THERE IS NO IMPROVEMENT. CALL 911 IF YOU NEED IMMEDIATE ASSISTANCE. TAKE TYLENOL OR MOTRIN [id number] NEEDED AND IF NO CONTRAINDICATIONS ARE PRESENT. INCREASE ORAL HYDRATION. A WOUND CULTURE OR URINE CULTURE WAS ORDERED HERE IN THE EMERGENCY ROOM DEPARTMENT PLEASE FOLLOW-UP WITH PRIMARY CARE PROVIDER AND ADVISE THEM TO GET REPEAT PORTS FROM OUR FACILITY. IF YOU HAD ANY ANNY WRAP/SPLINTS THAT WERE APPLIED HERE, PLEASE DO NOT REMOVE THEM UNTIL YOU SEE YOUR PRIMARY CARE OR SPECIALTY. TAKE ANTIBIOTICS DIRECTED UNTIL GONE. , SEE YOUR PRIMARY CARE DOCTOR FOR FOL LOW UP WITH MIN MANAGEMENT IN 1-2 DAYS. Referrals: TIFFANIE LIVINGSTON (PCP) Time of Disposition: 13:50 I have reviewed the case, and I agree with, Diagnosis and Plan UMBEROT FRANCIS NP May 30, 2024 12:57
[2024-05-30 13:00] VITALS: BP 115/67; PULSE 68; RESP 16; O2SAT 99
[2024-05-30] MEDS ORDERED: AMOX1TAB16 PO (13:51)
--- NOTE | 2024-05-30 13:54 | HMCIMG ---
US SOFT TISSUE NECK REASON: SWOLLEN TENDER NODULE LEFT LATERAL INFERIOR NECK. COMPARISON: None TECHNIQUE: Left soft tissue neck ultrasound study was performed. FINDINGS: There are lymph nodes in the left neck measuring 5 x 4 x 6 mm and 8 x 3 x 7 mm each which is normal in size. IMPRESSION: Normal size left neck lymph nodes are seen.
== END 2024-05-30 14:21 | disposition home or self-care (01) ==
LOC: EDH 12:51
DX: R59.0 Localized enlarged lymph nodes (principal); Z79.01 Long term (current) use of anticoagulants; Z90.710 Acquired absence of both cervix and uterus; Z95.5 Presence of coronary angioplasty implant and graft
CPT/HCPCS: 76536; 99284

== ENCOUNTER 2024-06-15 16:35 | Emergency (ER) | payer BC ==
[~2024-06-15] VITALS: Ht 162.6 cm; Wt 78.0 kg
[~2024-06-15 16:35] MED LIST changes: +AMOX1TAB16 PO
[2024-06-15 16:53] LABS: APPEARANCE,URINE CLEAR (CLEAR); BILIRUBIN,URINE NEGATIVE (NEGATIVE); COLOR,URINE LIGHT-YELLOW (YELLOW); GLUCOSE, URINE (UA) NEGATIVE (NEGATIVE); KETONES,URINE 20 mg/dL (NEGATIVE); LEUKOCYTE ESTERASE ,URINE NEGATIVE Leu/uL (NEGATIVE); NITRATE,URINE NEGATIVE (NEGATIVE); OCCULT BLOOD,URINE NEGATIVE (NEGATIVE); PH,URINE 5.5 (5.0-8.0); PROTEIN,URINE NEGATIVE (NEGATIVE); UROBILINOGEN,URINE 0.2 mg/dL (0.2-1.0)
[2024-06-15 16:54] LABS: ADD UA MICROSCOPIC YES
[2024-06-15 16:57] LABS: BACTERIA,URINE RARE /HPF (None Seen); MUCUS,URINE RARE LPF (None Seen); RBC,URINE 0-1 /HPF (0-1); SQUAMOUS EPITHELIAL CELL,UR FEW /HPF (0-2)
[2024-06-15 17:25] LABS: HEMATOCRIT 39.8 % (36-48); MEAN CORPUSCULAR HEMOGLOBIN 29.7 pg (27.0-33.0); MEAN CORPUSCULAR HGB CONC 33.2 g/dL (32.0-36.0); MEAN CORPUSCULAR VOLUME 89.4 fL (79-99); RED BLOOD CELL COUNT(AUTO) 4.45 MIL/uL (4.00-5.50); RED CELL DISTRIBUTION WIDTH 13.2 % (11.0-15.5)
[2024-06-15 17:38] LABS: CREATININE 0.9 mg/dL (0.5-1.0); POTASSIUM 3.7 mmol/L (3.5-5.1)
--- NOTE | 2024-06-15 18:02 | HMCIMG ---
CT ABDOMEN/PELVIS W/O CONTRAST REASON: L flank pain COMPARISON: None. FINDINGS: Lung bases are clear. There are no focal liver lesions. There are normal-appearing kidneys.. Spleen and pancreas appear unremarkable. There has been a previous cholecystectomy. Bowel loops appear unremarkable. There is no CT evidence of acute appendicitis. There is no evidence of free fluid or intraperitoneal air. There are no focal fluid collections. Aorta and retroperitoneum appear normal as do pelvic soft tissues. There is a venous stent in the external and common iliac vein on the left. This was present on prior study as well. The anterior abdominal wall is intact. Osseous structures appear unremarkable. IMPRESSION: 1. No acute finding in the abdomen or pelvis and no interval change. CT was performed with one or more following dose reduction techniques: automated exposure control, adjustment of the mA and kv according to patient's size, or use of a iterative reconstruction technique.
[2024-06-15] MEDS ORDERED: CEPH500T PO (18:29)
--- NOTE | 2024-06-15 18:29 | ERN ---
General Chief Complaint: Flank Pain Stated Complaint: BACK PAIN Time Seen by MD: 17:11 Time Seen by Midlevel: 17:11 Source: patient History of Present Illness Initial Comments 48-year-old female who presents to the ED due to left flank pain onset two days. She reports frequent and concentrated urination but denies any fever, vomiting or further associated symptoms. PMHx lupus, herpes Allergies: Coded Allergies: No Known Drug Allergies (Unverified Allergy, Unknown, 11/16/17) Home Meds Active Scripts Cephalexin (Cephalexin) 500 Mg Tablet, 500 MG PO BID for 7 Days, #14 TAB Prov:SANDRO CHRISTIANSON PA 06/15/24 Amoxicillin/Potassium Clav (Amox Tr-K Clv 875-125 mg Tab) 875 Mg-125 Mg Tablet, 1 EACH PO BID for 7 Days, #14 TAB 0 Refills Prov:UMBERTO FRANCIS SCRAPER TENDER 05/30/24 Ondansetron (Ondansetron Odt) 4 Mg Tab.rapdis, 1 TAB PO Q6HPRN PRN for nausea/vomiting for 4 Days, #16 TAB 0 Refills Prov:LOI ARBOLEDA [facility] 05/13/24 Nitrofurantoin Monohyd/M-Cryst (Macrobid 100 mg Capsule) 100 Mg Capsule, 1 CAP PO BID for 5 Days, #10 CAP 0 Refills Prov:LOI ARBOLEDA [facility] 05/13/24 Famotidine (Famotidine) 20 Mg Tablet, 20 MG PO DAILY for 30 Days, #30 TAB Prov:ROSLYN FRANCOIS SCRAPER TENDER 11/22/23 Reported Medications Apixaban (Eliquis) 5 Mg Tablet, 5 MG PO BID, TAB 11/19/23 Past Medical History Past Medical History: CAD, Other Medical History Other: LUPUS, HERPES Past Surgical History: Hysterectomy Surgical History Other: LASIK, CARDIAC STENT Social History Social History: Negative, Lives with family Female( History) History: Not Applicable ROS Dictation Constitutional: Negative for fever,chills, and weight loss Eyes: Negative for injury, pain,redness, and discharge ENT: Negative for injury,pain or swelling Cardiovascular: Negative for chest pain, palpitations, and edema Respiratory: Negative for shortness of breath, cough, and wheezing, Abdomen/GI: Negative for abdominal pain, nausea, vomiting, diarrhea, and constipation Back: Positive for left flank pain Negative for injury and pain : Positive for frequent and concentrated urination Negative for painful urination, bleeding or discharge MS/Extremity: Negative for injury and deformity Skin: Negative for rash, and discoloration Neuro: Negative for headache, weakness, numbness, tingling, and seizure Psych: Negative for suicide ideation, homicidal ideation, and hallucinations Physical Exam Physical Exam Dictation General: awake, alert, no acute distress Head/Face: Normocephalic, atraumatic Eyes: normal conjunctiva ENT: oral mucosa moist Cardiovascular: RRR, normal S1/S2 Respiratory: no respiratory distress Abdomen: Soft, non-tender, non-distended, no guarding or rebound Back: No CVA tenderness Skin: Warm, dry, normal turgor, no rash MS/Extremity: Pulses equal, no cyanosis, neurovascular intact, FROM Neuro: COAx4, GCS 15, no neurological deficits, normal gait, Psych: Normal behavior, mood, and affect normal Results Laboratory and Microbiology Lab and Micro Result Laboratory Tests Test 06/15/24 16:45 06/15/24 17:11 Urine Color LIGHT-YELLOW (YELLOW) Urine Appearance CLEAR (CLEAR) Urine pH 5.5 (5.0-8.0) Urine Specific [place] 1.024 (1.001-1.031) Urine Protein NEGATIVE mg/dL (NEGATIVE) Urine Glucose (UA) NEGATIVE mg/dL (NEGATIVE) Urine Ketones 20 mg/dL (NEGATIVE) H Urine Occult Blood NEGATIVE (NEGATIVE) Urine Nitrate NEGATIVE (NEGATIVE) Urine Bilirubin NEGATIVE mg/dL (NEGATIVE) Urine Urobilinogen 0.2 mg/dL (0.2-1.0) Urine Leukocyte Esterase NEGATIVE Jazmin/uL Urine RBC 0-1 /HPF (0-1) Urine WBC 2-5 /HPF (0-1) H Urine Squamous Epithelial Cells FEW /HPF (0-2) Urine Bacteria RARE /HPF (None Seen) White Blood Count 7.0 K/uL (4.8-10.8) Red Blood Count 4.45 MIL/uL (4.00-5.50) Hemoglobin 13.2 g/dL (12.0-16.0) Hematocrit 39.8 % (36-48) Mean Corpuscular Volume 89.4 fL (79-99) Mean Corpuscular Hemoglobin 29.7 pg (27.0-33.0) Mean Corpuscular Hemoglobin Concent 33.2 g/dL (32.0-36.0) Red Cell Distribution Width 13.2 % (11.0-15.5) Platelet Count 231 K/uL (130-400) Mean Platelet Volume 9.6 fL (7.5-10.5) Nucleated Red Blood Cells 0.0 % (0.0-0.19) Sodium Level 140 mmol/L (136-145) Potassium Level 3.7 mmol/L (3.5-5.1) Chloride Level 102 mmol/L (101-111) Carbon Dioxide Level 31 mmol/L (21-32) Blood Urea Nitrogen 17 mg/dL (7-18) Creatinine 0.9 mg/dL (0.5-1.0) Glomerular Filtration Rate Calc 79 mL/min (>90) Random Glucose 113 mg/dL (70-105) H Total Calcium 9.3 mg/dL (8.5-10.1) Labs Reviewed?: Yes EKG/XRAY/US/CT/MRI CT Scan Comment REASON: L flank pain ORDERING PHYSICIAN: SANDRO CHRISTIANSON PROCEDURE: ABD PEL WO - CT ABDOMEN/PELVIS W/O CONTRAST CT ABDOMEN/PELVIS W/O CONTRAST REASON: L flank pain COMPARISON: None. FINDINGS: Lung bases are clear. There are no focal liver lesions. There are normal-appearing kidneys.. Spleen and pancreas appear unremarkable. There has been a previous cholecystectomy. Bowel loops appear unremarkable. There is no CT evidence of acute appendicitis. There is no evidence of free fluid or intraperitoneal air. There are no focal fluid collections. Aorta and retroperitoneum appear normal as do pelvic soft tissues. There is a venous stent in the external and common iliac vein on the left. This was present on prior study as well. The anterior abdominal wall is intact. Osseous structures appear unremarkable. IMPRESSION: 1. No acute finding in the abdomen or pelvis and no interval change. CT was performed with one or more following dose reduction techniques: automated exposure control, adjustment of the mA and kv according to patient's size, or use of a iterative reconstruction technique. MDM MDM: Differential diagnosis: UTI, nephrolithiasis, pyelonephritis Rationale: 48-year-old female who presents to the ED due to left flank pain onset two days. She reports frequent and concentrated urination but denies any fever, vomiting or further associated symptoms. PMHx lupus, herpes Per physical examination patient is in no acute distress, no CVA tenderness. Patient declined any pain medication. Labs obtained are nonspecific. CT abdome n and pelvis indicates no acute findings. UA indicates no urinary tract infection however based on patient's symptoms and history of frequent UTIs antibiotics prescribed for outpatient treatment. Patient was educated on findings and diagnosis. Advised to follow up with PCP. Return to the ED if any worsening symptoms. Patient verbalized understanding. Patient stable for discharge. There are no social concerns with this patient. I independently interpreted the test that were performed, results were reviewed by me and considered findings on radiology if ordered. Medical management and examination interpretation discussions were had by me with other qualified healthcare professionals as indicated for the patient's care. ED Course Orders Procedure Category Date Status Time Urinalysis Profile LAB 06/15/24 Complete 16:46 Cbc Without LAB 06/15/24 Complete Differential 16:49 Basic Metabolic Panel LAB 06/15/24 Complete 16:49 Ct Abdomen/Pelvis W/O CT 06/15/24 Resulted Contrast 17:21 Vital Signs Date Time Temp Pulse Resp B/P (MAP) Pulse Ox O2 Delivery O2 Flow Rate FiO2 06/15/24 18:43 98.2 74 14 122/70 98 Room Air* 0 21 06/15/24 16:39 98.2 70 18 128/71 98 DX & DISP Disposition: Discharge Departure Impression: Primary Impression: Cystitis Condition: Stable Scripts Cephalexin (Cephalexin) 500 Mg Tablet 500 MG PO BID for 7 Days, #14 TAB Prov: SANDRO CHRISTIANSON 06/15/24 Additional Instructions: Discharge home. Rest. Follow up with primary care DrVadim in 24 hours. Return to the ER for any acute changes or worsening symptoms. If any medications were prescribed take as directed. Okay to continue home medications unless otherwise discussed during your visit in the emergency room today. Patient was also advised to follow-up with primary care physician in 1 to 2 days for continued monitoring. Referrals: TIFFANIE LIVINGSTON (PCP) I participated in the following activities of this patient's care: For this patient encounter, I reviewed the PA or SCRAPER TENDER documentation, treatment plan, and medical decision making. I did not have [id number] time with this patient. I will sign as the reviewing DrVadim And agree with the treatment plan and disposition. SANDRO CHRISTIANSON Jun 15, 2024 18:29
[2024-06-15 18:43] VITALS: BP 122/70; PULSE 74; RESP 14; TEMP 98.2; O2SAT 98
== END 2024-06-15 18:50 | disposition home or self-care (01) ==
LOC: EDH 16:35
DX: N30.90 Cystitis, unspecified without hematuria (principal); I25.10 Atherosclerotic heart disease of native coronary artery without angina pectoris; Z79.01 Long term (current) use of anticoagulants; Z90.710 Acquired absence of both cervix and uterus; Z95.5 Presence of coronary angioplasty implant and graft
CPT/HCPCS: 36415; 74176; 80048; 81001; 85027; 99284

== ENCOUNTER 2024-11-02 18:01 | Emergency (ER) | payer BC ==
[~2024-11-02] VITALS: Ht 162.6 cm; Wt 77.1 kg
[~2024-11-02 18:01] MED LIST changes: +CEPH500T PO
[2024-11-02] MEDS: ketOROlac 15MG/ML VIAL (15MG/ML) IV STA (19:17)
--- NOTE | 2024-11-02 20:33 | HMCIMG ---
Exam Type: KNEE 2VW BILATERAL Clinical Information: KNEE PAIN Comparison: None Findings: The bone examination is unremarkable. No fractures or dislocations are seen. No radiopaque foreign bodies are noted. Soft tissues are preserved. IMPRESSION: Normal examination.
--- NOTE | 2024-11-02 20:40 | ERN ---
ED Note History of Present Illness Stated Complaint: RT KNEE PAIN X6 DAYS Chief Complaint: Knee Injury/Swelling Time Seen by MD: 18:06 Time Seen by Midlevel: 18:10 Dictation: 49-YEAR-OLD FEMALE WITH A HISTORY OF LUPUS AND ASTHMA COMING IN COMPLAINING OF BILATERAL KNEE PAIN BUT MORE SO THE RIGHT. PATIENT STATES SHE WAS DANCING LAST MONDAY, MONDAY, MONDAY AND BEGAN WITH KNEE PAIN ON MONDAY. DENIES ANY TRAUMA, NO OTHER COMPLAINTS. PATIENT CAME IN AMBULATING FROM TRIAGE, WITHOUT ASSISTANCE. Allergies: Coded Allergies: No Known Drug Allergies (Unverified Allergy, Unknown, 11/16/17) Home Meds Active Scripts Cephalexin (Cephalexin) 500 Mg Tablet, 500 MG PO BID for 7 Days, #14 TAB Prov:SANDRO CHRISTIANSON PA 06/15/24 Amoxicillin/Potassium Clav (Amox Tr-K Clv 875-125 mg Tab) 875 Mg-125 Mg Tablet, 1 EACH PO BID for 7 Days, #14 TAB 0 Refills Prov:UMBERTO FRANCIS DRUG DISCOVERY INFORMATICS SPECIALIST 05/30/24 Ondansetron (Ondansetron Odt) 4 Mg Tab.rapdis, 1 TAB PO Q6HPRN PRN for nausea/vomiting for 4 Days, #16 TAB 0 Refills Prov:LOI ARBOLEDA [facility] 05/13/24 Nitrofurantoin Monohyd/M-Cryst (Macrobid 100 mg Capsule) 100 Mg Capsule, 1 CAP PO BID for 5 Days, #10 CAP 0 Refills Prov:LOI ARBOLEDA [facility]IST[facility] 05/13/24 Famotidine (Famotidine) 20 Mg Tablet, 20 MG PO DAILY for 30 Days, #30 TAB Prov:ROSLYN FRANCOIS DRUG DISCOVERY INFORMATICS SPECIALIST 11/22/23 Reported Medications Apixaban (Eliquis) 5 Mg Tablet, 5 MG PO BID, TAB 11/19/23 Past Medical History Past Medical History: Arthritis, Asthma, CAD, Other Additional Past Medical Hx: LUPUS, HERPES Surgical History: Hysterectomy, Other Surgical History Other: LASIK, CARDIAC STENT Social History: Negative, Lives with family History: Not Applicable Review of System Dictation CONSTITUTIONAL: NEGATIVE FOR FEVER,CHILLS, AND WEIGHT LOSS EYES: NEGATIVE FOR INJURY, PAIN,REDNESS, AND DISCHARGE ENT: NEGATIVE FOR INJURY,PAIN OR SWELLING CARDIOVASCULAR: NEGATIVE FOR CHEST PAIN, PALPITATIONS, AND EDEMA RESPIRATORY: NEGATIVE FOR SHORTNESS OF BREATH, COUGH, AND WHEEZING, ABDOMEN/GI: NEGATIVE FOR ABDOMINAL PAIN, NAUSEA, VOMITING, DIARRHEA, AND CONSTIPATION BACK: NEGATIVE FOR INJURY AND PAIN : NEGATIVE FOR INJURY, BLEEDING AND DISCHARGE MS/EXTREMITY: BILATERAL KNEE PAIN SKIN: NEGATIVE FOR RASH, AND DISCOLORATION NEURO: NEGATIVE FOR HEADACHE, WEAKNESS, NUMBNESS, TINGLING, AND SEIZURE PSYCH: NEGATIVE FOR SUICIDE IDEATION, HOMICIDAL IDEATION, AND HALLUCINATIONS Review of Systems: was completed Initial Vital Sign VS Vital Signs Date Time Temp Pulse Resp B/P (MAP) Pulse Ox O2 Delivery O2 Flow Rate FiO2 11/02/24 18:02 98.8 74 14 137/73 100 Room Air 0 Physical Exam Dictation GENERAL: AWAKE, ALERT, NAD HEAD/FACE: NORMOCEPHALIC, ATRAUMATIC EYES: PERRL, EOMI, VISION AT BASELINE ENT: ORAL CAVITY CLEAR, TMS CLEAR, NO SIGNS OF INFECTION NECK: TRACHEA MIDLINE, SUPPLE, NO NUCHAL RIGIDITY CARDIOVASCULAR: RRR, NORMAL S1/S2, NO MRGS, NO JVD RESPIRATORY: CTAB, NO RESPIRATORY DISTRESS, NO RALES OR WHEEZES ABDOMEN: SOFT, NON-TENDER, NON-DISTENDED, NORMAL BOWEL SOUNDS, NO GUARDING OR REBOUND. SKIN: WARM, DRY, NORMAL TURGOR, NO RASH MS/EXTREMITY: PULSES EQUAL, NO CYANOSIS, NEUROVASCULAR INTACT, FROM, THERE IS NO REDNESS, NO SWELLING, NO SIGNS OF ANY INFECTIOUS PROCESS. NEURO: COAX4, GCS 15, STRENGTH 5/5, CN 2-12 INTACT, NORMAL CEREBELLAR EXAM, NORM AL GAIT, PSYCH: NORMAL BEHAVIOR, MOOD, AND AFFECT NORMAL Results (Laboratory/Radiology) X-RAY Comment: [place] [address] IMAGING REPORT Signed PATIENT: RITA COMER MR#: [id number] : 1975 SEX: F AGE: 49 LOCATION: [facility] ORDER 56 STATUS: REG ER REPORT#: [id number] SERVICE 55 REASON: KNEE PAIN ORDERING PHYSICIAN: LEATHA LOPES NP PROCEDURE: KNEE 2VBIL - KNEE 2VW BILATERAL Exam Type: KNEE 2VW BILATERAL Clinical Information: KNEE PAIN Comparison: None Findings: The bone examination is unremarkable. No fractures or dislocations are seen. No radiopaque foreign bodies are noted. Soft tissues are preserved. IMPRESSION: Normal examination. DICTATED BY: FAYB HARRIS MD DATE: 11/02/242028 ELECTRONICALLY SIGNED BY: FABY HARRIS MD DATE: 11/02/242032 [facility] ED Course ED Course Orders Procedure Category Date Status Time Knee 2vw Bilateral RAD 11/02/24 Resulted 18:56 Ketorolac PHA 11/02/24 Complete Tromethamine 15mg/Ml 18:58 Current Medications Medications (Trade) Dose Ordered Sig/Alejo Route PRN Reason Start Time Stop Time Status Last Admin Dose Admin Ketorolac Tromethamine (toRADol) 15 mg ONCE STAT IV 11/02/24 18:58 11/02/24 19:04 DC 11/02/24 19:17 Vital Signs Date Time Temp Pulse Resp B/P (MAP) Pulse Ox O2 Delivery O2 Flow Rate FiO2 11/02/24 18:02 98.8 74 14 137/73 100 Room Air 0 Medical Decision Making MDM MDM: 49-YEAR-OLD FEMALE WITH A HISTORY OF LUPUS AND ASTHMA COMING IN COMPLAINING OF BILATERAL KNEE PAIN BUT MORE SO THE RIGHT. PATIENT STATES SHE WAS DANCING LAST MONDAY, MONDAY, MONDAY AND BEGAN WITH KNEE PAIN ON MONDAY. DENIES ANY TRAUMA, NO OTHER COMPLAINTS. X-RAY SHOWS NO ACUTE FINDING. DISCUSSED FINDINGS WITH THE PATIENT. EDUCATED PATIENT SHE NEEDS TO TAKE [id number] TYLENOL OR IBUPROFEN FOR PAIN CONTROL AND FOLLOW UP WITH HER PCP. PATIENT VERBALIZED UNDERSTANDING, ANSWERED ALL QUESTIONS. DIFFERENTIAL DIAGNOSIS: ARTHRITIS, KNEE SPRAIN, JOINT EFFUSIONS RATIONALE: TESTS CONSIDERED AND ORDERED SECONDARY TO SHARED DECISION MAKING INCLUDE: PREVIOUS OUTSIDE RECORDS REVIEWED: OLD ER VISITS. RISK OF COMPLICATION AND/OR MORBIDITY OR MORTALITY OF PATIENT MANAGEMENT: NONE MEDICATIONS-PER MEDICATION RECONCILIATION NEED FOR HOSPITALIZATION: PATIENT DOES NOT MEET CRITERIA FOR HOSPITALIZATION. NEED FOR EMERGENCY MAJOR/MINOR SURGERY: NO THERE ARE NO SOCIAL CONCERNS WITH THIS PATIENT. PRESCRIPTION DRUG MANAGEMENT PRESCRIPTIONS WILL INCLUDE SYMPTOMATIC CARE PATIENT'S PRIOR EXTERNAL MEDICAL RECORDS FROM OTHER ER VISITS WERE REVIEWED BY ME INDICATED. PRIOR TESTING AND RESULTS FROM PREVIOUS VISITS WERE REVIEWED. PRIOR TESTS WERE TAKEN INTO ACCOUNT WITH MEDICAL DECISION MAKING AND RESOURCE UTILIZATION, INDEPENDENT HISTORIAN/HISTORIANS WERE USED TO OBTAIN COMPLETE MEDICAL HISTORY. I INDEPENDENTLY INTERPRETED THE TEST THAT WERE PERFORMED, RESULTS WERE REVIEWED BY ME AND CONSIDERED FINDINGS ON RADIOLOGY IF ORDERED. MEDICAL MANAGEMENT AND EXAMINATION INTERPRETATION DISCUSSIONS WERE HAD BY ME WITH OTHER QUALIFIED HEALTHCARE PROFESSIONALS INDICATED FOR THE PATIENT'S CARE. DX & DISP Disposition: Discharge Departure Impression: Primary Impression: Knee pain Condition: Stable Additional Instructions: BRIGITTE TYLENOL Y IBROPOFEN PARA EL DOLOR. SEGUIR CON ADORNO DOCTOR FAMILIAR. Referrals: TIFFANIE LIVINGSTON (PCP) Time of Disposition: 20:40 I have reviewed the case, and I agree with, Diagnosis and Plan LEATHA LOPES DRUG DISCOVERY INFORMATICS SPECIALIST November 02, 2024 20:40
[2024-11-02 20:47] VITALS: BP 133/61; PULSE 75; RESP 15; TEMP 97.9; O2SAT 100
== END 2024-11-02 20:53 | disposition home or self-care (01) ==
LOC: EDH 18:01
DX: M25.561 Pain in right knee (principal); M25.562 Pain in left knee; I25.10 Atherosclerotic heart disease of native coronary artery without angina pectoris; J45.909 Unspecified asthma, uncomplicated; M19.90 Unspecified osteoarthritis, unspecified site; Z79.01 Long term (current) use of anticoagulants; Z90.710 Acquired absence of both cervix and uterus; Z95.5 Presence of coronary angioplasty implant and graft; X58.XXXA Exposure to other specified factors, initial encounter; Y93.41 Activity, dancing; Y92.89 Other specified places as the place of occurrence of the external cause; Y99.8 Other external cause status
CPT/HCPCS: 99284; 73565; 96372; J1885; 73560